=== PATIENT | male | born 1995 | race Caucasian/White ===

== ENCOUNTER 2022-06-25 01:24 | Inpatient (IN) | payer MEDICAID ==
[~2022-06-25] VITALS: Ht 170.2 cm; Wt 68.5 kg
[2022-06-25] MEDS ORDERED: ONDANSETRON HCL/PF 4 MG/2 ML VIAL ONE ×3 (03:50→11:56)
[2022-06-25] MEDS ORDERED: KETOROLAC TROMETHAMINE INJ 30 MG/ML VIAL ONE (03:50)
[2022-06-25] MEDS ORDERED: KETOROLAC TROMETHAMINE INJ 30 MG/ML VIAL IV ONE (04:00)
[2022-06-25] MEDS ORDERED: IV NS 0.9% 1,000 ML BAG IV ONE (04:00)
[2022-06-25] MEDS ORDERED: ONDANSETRON HCL/PF 4 MG/2 ML VIAL IVP ONE (04:00)
--- NOTE | 2022-06-25 04:04 | NUR ---
RAC #18G S/L BLOOD COLLECTED AND SENT TO LAB
--- NOTE | 2022-06-25 04:05 | NUR ---
PT TAKEN TO CT VIA SADA
[2022-06-25 04:17] LABS: BILIRUBIN,URINE SMALL (NEGATIVE); COLOR,URINE YELLOW (YELLOW); LEUKOCYTE ESTERASE ,URINE NEGATIVE (NEGATIVE); NITRITE, URINE NEGATIVE (NEGATIVE); PH,URINE 6.5 (5.0-8.0); PROTEIN,URINE 100 mg/dl (NEGATIVE); UGLUCOSE NEGATIVE (NEGATIVE)
[2022-06-25 04:28] LABS: BASOPHILS % (AUTO) 0.3 % (0.0-2.0); EOSINOPHILS % (AUTO) 0.5 % (0.0-6.0); HEMATOCRIT 45 % (39-51); HEMOGLOBIN 15.7 g/dL (13.5-17.5); LYMPHOCYTES # (AUTO) 1.7 K/uL (0.8-4.8); LYMPHOCYTES % (AUTO) 13.3 % (20.0-44.0); MEAN CORPUSCULAR HGB CONC 35 g/dl (31.0-36.0); MEAN CORPUSCULAR VOLUME 87 fL (80-96); MONOCYTES % (AUTO) 7.6 % (2.0-12.0); NEUTROPHILS # (AUTO) 10.2 K/uL (1.8-8.9); NEUTROPHILS % (AUTO) 78.3 % (43.0-81.0); PLATELET COUNT (AUTO) 399 K/uL (150-450); RED BLOOD CELL COUNT(AUTO) 5.18 MIL/uL (4.5-6.0)
[2022-06-25 04:29] LABS: BACTERIA,URINE Rare /HPF (None Seen); SQUAMOUS EPITHELIAL CELL,UR Few /HPF (None Seen)
[2022-06-25 04:34] LABS: BILIRUBIN,DIRECT 0.4 mg/dL (0.0-0.2); BILIRUBIN,TOTAL 1.7 mg/dL (0.2-1.0); CALCIUM, SERUM 9.4 mg/dL (8.5-10.1); CREATININE 1.1 mg/dL (0.6-1.3); TOTAL PROTEIN, SERUM 9.1 g/dL (6.4-8.2)
[2022-06-25 04:36] LABS: POTASSIUM 2.5 mmol/L (3.5-5.1)
[2022-06-25] MEDS ORDERED: POTASSIUM CL. PREMIX PERIPHER. 200 ML ONE (04:40)
[2022-06-25] MEDS ORDERED: POTASSIUM CHLORIDE 20 MEQ TAB.PRT.SR PO ONE ×2 (04:40→05:00)
[2022-06-25] MEDS ORDERED: POTASSIUM CHLORIDE 10 MEQ/50 ML PREMIXED IVPB FOR PERIPHERAL LINE IV ONE (05:00)
--- NOTE | 2022-06-25 05:11 | NUR ---
DR BLAKELY ON THE PHONE WITH DR IRIZARRY FOR CARDIAC CONSULT
[2022-06-25] MEDS ORDERED: ONDANSETRON HCL/PF 4 MG/2 ML VIAL IV ONE ×2 (05:30→12:00)
[2022-06-25] MEDS ORDERED: ONDA4TAB5 PO (05:49)
[2022-06-25] MEDS ORDERED: PANT40TA2 PO (05:49)
[2022-06-25] MEDS ORDERED: POTA10TA PO (05:49)
--- NOTE | 2022-06-25 12:25 | NUR ---
MOVE SHEET SUBMITTED.
--- NOTE | 2022-06-25 12:41 | NUR ---
[facility] CALLED [facility] B[facility] PAGED.
--- NOTE | 2022-06-25 13:17 | NUR ---
THOMAS SISTER [phone] IN [facility] [phone] KENISHA
[2022-06-25] MEDS ORDERED: ACETAMINOPHEN 325 MG TABLET PO PRN (13:30)
[2022-06-25] MEDS ORDERED: ONDANSETRON HCL/PF 4 MG/2 ML VIAL IVP PRN (13:30)
--- NOTE | 2022-06-25 13:42 | NUR ---
room [id number]
--- NOTE | 2022-06-25 14:07 | NUR ---
Report given to Malia BOWEN to continue care.
--- NOTE | 2022-06-25 14:52 | NUR ---
wheeled patient via gurney accompanied by RN and emt in no distress. RN assigned to patient at bedside to continue care.
--- NOTE | 2022-06-25 15:00 | NUR ---
[employer] OPENING NOTES: RECEIVED PT VIA GURNEY FROM ER STAFF. A/O X4, VITALS WERE BP: 102/51, HR: 68, TEMP 98.2, RR: 18, O2 SAT 99% ON RA. NO S/S OF ACUTE DISTRESS AND SOB NOTED. IV ACCESS RAC# 18. CONNECTED PT TO TELE MONITOR READING SR 90. PT C/O OF PAIN 8/10, PRN PAIN MED GIVEN, WILL REASSESS FOR EFFECTIVENESS. KEPT NPO FOR NOW. SAFETY MEASURES IN PLACE: HOB ELEVATED, LOCKED AT LOWEST POSITION, SIDERAILS UP X2, TABLE AND CALL LIGHT WITHIN REACH, WILL CONT TO MONITOR.
[2022-06-25] MEDS: HYDROCODONE/APAP 5/325MG TABLET PO PRN ×3 (15:23→23:57)
[2022-06-25] MEDS: POTASSIUM CL. PREMIX PERIPHER. 50 ML IV SCH ×4 (15:27→18:58)
[2022-06-25] MEDS: IV D5/0.45 NACL 1,000 ML IV PRN (16:54)
--- NOTE | 2022-06-25 19:35 | NUR ---
PUBLIC RELATIONS PROFESSIONAL OPENING NOTE RECEIVED PATIENT RESTING IN BED; AWAKE, ALERT AND ORIENTED X4; THAI SPEAKING. BREATHING IS EVEN AND NONLABORED. ON ROOM AIR; TOLERATING WELL. NOT IN ANY FORM OF RESPIRATORY DISTRESS. ON TELEMETRY MONITORING WITH CURRENT READING OF SINUS RHYTHM HR-66 BPM. ABLE TO MAKE NEEDS KNOWN. WITH IV ACCESS ON RIGHT AC G#18 INFUSING WITH D5 1/2 NS 1L REGULATED @ 75ML/HR; PATENT, INTACT AND FLUSHES WELL. SAFETY AND FALL MEASURES IMPLEMENTED: CALL LIGHT AND TABLE WITHIN REACH, SIDE RAILS UP X2, BED IN LOWEST LOCKED POSITION. WILL CONTINUE TO MONITOR
--- NOTE | 2022-06-25 19:45 | NUR ---
AUTO SERVICE WRITER CLOSING NOTES: PT AWAKE, A/O X4, VITALS WERE BP: 102/51, HR: 68, TEMP 98.2, RR: 18, O2 SAT 99% ON RA. NO S/S OF SOB NOTED. IV ACCESS RAC# 18 RUNNING D5 1/2 NS @ 75ML/HR. PT ON TELE MONITOR READING SR 90. PT C/O OF PAIN 07/08, PRN PAIN MED GIVEN @ 1930. KEPT NPO FOR NOW. SAFETY MEASURES IN PLACE: HOB ELEVATED, LOCKED AT LOWEST POSITION, SIDERAILS UP X2, TABLE AND CALL LIGHT WITHIN REACH, ENDORSED TO PM SHIFT.
[2022-06-25 20:00] VITALS: BP 139/78
--- NOTE | 2022-06-25 23:57 | NUR ---
RN NOTE PATIENT COMPLAINED OF LEFT FLANK AND BACK PAIN WITH SCALE OF 8/10; NORCO 5/325 1 TAB GIVEN PO ORDERED. WILL CONTINUE TO MONITOR
[2022-06-26] VITALS: BP 114/45
[2022-06-26 00:10] VITALS: BP 114/45
--- NOTE | 2022-06-26 01:53 | NUR ---
RN NOTE PATIENT STATED THAT PAIN MEDICINE GIVEN IS OF NO RELIEF AT ALL. VINCENT JOYNER NP NOTIFIED AND MADE AWARE. WITH NEW ORDER MADE AND CARRIED OUT.
[2022-06-26] MEDS ORDERED: KETOROLAC TROMETHAMINE INJ 30 MG/ML VIAL IM ONE (02:00)
--- NOTE | 2022-06-26 02:06 | NUR ---
RN NOTE KETOROLAC 30 MG 1 ML GIVEN IM ORDERED; WILL CONTINUE TO MONITOR
[2022-06-26 04:00] VITALS: BP 118/70
[2022-06-26 06:00] LABS: BASOPHILS % (AUTO) 0.3 % (0.0-2.0); EOSINOPHILS % (AUTO) 1.8 % (0.0-6.0); HEMATOCRIT 44 % (39-51); HEMOGLOBIN 15.3 g/dL (13.5-17.5); LYMPHOCYTES # (AUTO) 2.9 K/uL (0.8-4.8); LYMPHOCYTES % (AUTO) 26.9 % (20.0-44.0); MEAN CORPUSCULAR HGB CONC 35 g/dl (31.0-36.0); MEAN CORPUSCULAR VOLUME 87 fL (80-96); MONOCYTES # (AUTO) 1.5 K/uL (0.1-1.30); MONOCYTES % (AUTO) 13.6 % (2.0-12.0); NEUTROPHILS # (AUTO) 6.3 K/uL (1.8-8.9); NEUTROPHILS % (AUTO) 57.4 % (43.0-81.0); PLATELET COUNT (AUTO) 372 K/uL (150-450); RED BLOOD CELL COUNT(AUTO) 5.07 MIL/uL (4.5-6.0); WHITE BLOOD COUNT (AUTO) 10.9 K/uL (4.3-11.0)
[2022-06-26 06:12] LABS: CALCIUM, SERUM 8.9 mg/dL (8.5-10.1); CREATININE 1.2 mg/dL (0.6-1.3); MAGNESIUM 2.5 mg/dL (1.8-2.4); PHOSPHORUS 4.4 mg/dL (2.5-4.9)
[2022-06-26 06:17] LABS: POTASSIUM 2.5 mmol/L (3.5-5.1)
--- NOTE | 2022-06-26 06:17 | NUR ---
RN NOTE RECEIVED CRITICAL LAB RESULT; POTASSIUM-2.5. STRATEGY EXECUTION CONSULTANT HOSPITALIST NOTIFIED.
--- NOTE | 2022-06-26 07:04 | NUR ---
CASEWORKER INTAKE CLOSING NOTE PATIENT IS RESTING IN BED; A/O X4. TOLERATED ALL TREATMENTS. NEEDS ANTICIPATED AND ATTENDED. SAFETY MEASURES IN PLACE. BED IN LOWEST LOCKED POSITION. ENDORSED TO MORNING SHIFT FOR ILDEFONSO.
--- NOTE | 2022-06-26 07:30 | NUR ---
RN OPENING NOTE- PATIENT RESTING IN BED; AWAKE, ALERT AND ORIENTED X4; [place] SPEAKING. BREATHING NONLABORED. ON ROOM AIR; ON TELEMETRY MONITORING WITH CURRENT READING OF SINUS SHINE HR- 56. ABLE TO MAKE NEEDS KNOWN. WITH IV ACCESS ON RIGHT AC G#18 INFUSING WITH D5 1/2 NS 1L AT 75ML/HR. SAFETY AND FALL MEASURES IMPLEMENTED: CALL LIGHT AND TABLE WITHIN REACH, SIDE RAILS UP X2, BED IN LOWEST LOCKED POSITION. WILL CONTINUE TO MONITOR / ASSIST
[2022-06-26 08:00] VITALS: BP 118/83
[2022-06-26] MEDS: POTASSIUM CL. PREMIX PERIPHER. 50 ML IV SCH ×2 (08:02→09:06)
[2022-06-26] MEDS: HYDROCODONE/APAP 5/325MG TABLET PO PRN ×3 (08:11→16:39)
[2022-06-26] MEDS: PANTOPRAZOLE 40 MG VIAL IV SCH (09:33)
--- NOTE | 2022-06-26 09:36 | NUR ---
RN NOTE- IV K INFUSED ONE BAG 10MEQ BUT PT C/O BURNING AT IV. DR FONTANEZ ORDERED KCL 80MEQ PO X ONE DOSE, COMPLIED
[2022-06-26] MEDS ORDERED: POTASSIUM CHLORIDE 20 MEQ TAB.PRT.SR PO ONE (10:00)
[2022-06-26] MEDS: IV D5/0.45 NACL 1,000 ML IV PRN (14:59)
[2022-06-26 16:00] VITALS: BP 103/58
--- NOTE | 2022-06-26 19:01 | NUR ---
RN NOTE- PT IV LEAKING, PT PULLING AT IT AND CONTINUED ATTEMPTS AT STOPPING IVF. REMOVED IV . INFORMED DR FONTANEZ.
--- NOTE | 2022-06-26 19:02 | NUR ---
RN CLOSING NOTE- PT AOX4, BELARUSIAN SPEAKING , TOLERATING CLEAR FLUIDS WELL, PAIN RELIEVED W NORCO TABS Q4H. PT ANXIOUS AT TIMES. NO N&V THIS SHIFT. BED LOCKED, NEEDS ATTENDED. MONBITOR ASSIST
[2022-06-26 20:00] VITALS: BP 85/55
--- NOTE | 2022-06-26 20:04 | NUR ---
RN OPENING NOTE- PT AOX4, KOREAN SPEAKING , TOLERATING CLEAR FLUIDS WELL, NO N&V REPORTED. NO PAIN REPORTED AT THIS TIME. BED LOCKED, NEEDS ATTENDED. WILL ATTEMPT TO INSERT IV IF PT AGREES. WILL CONTINUE TO MONITOR.
[2022-06-26] MEDS: Potassium Chloride 20 MEQ in IV NS 0.9% 1,000 ML IV SCH (22:54)
--- NOTE | 2022-06-26 22:55 | NUR ---
[employer] DRIVER NOTES new iv access extablished in r wrist 20g tolerated well. ns +kcl started. all needs met pt did request a sleeping aid head of operation and logistics notified awaiting for any new orders.
[2022-06-26] MEDS ORDERED: ZOLPIDEM TARTRATE 10 MG TABLET PO PRN (23:00)
--- NOTE | 2022-06-26 23:20 | NUR ---
telegraphic typewriter installer notes prtodd johnson given tolerated well will continue to monitor.
[2022-06-27] VITALS: BP 100/59
[2022-06-27] MEDS: HYDROCODONE/APAP 5/325MG TABLET PO PRN ×2 (05:47→12:12)
--- NOTE | 2022-06-27 05:58 | NUR ---
television specialist notes prn norco given for pain tolerated well. will continue to monitor.
[2022-06-27 06:41] LABS: BASOPHILS % (AUTO) 0.6 % (0.0-2.0); EOSINOPHILS % (AUTO) 2.6 % (0.0-6.0); HEMATOCRIT 43 % (39-51); HEMOGLOBIN 14.5 g/dL (13.5-17.5); LYMPHOCYTES # (AUTO) 1.8 K/uL (0.8-4.8); LYMPHOCYTES % (AUTO) 24.5 % (20.0-44.0); MEAN CORPUSCULAR HGB CONC 34 g/dl (31.0-36.0); MEAN CORPUSCULAR VOLUME 88 fL (80-96); MONOCYTES # (AUTO) 0.8 K/uL (0.1-1.30); MONOCYTES % (AUTO) 10.4 % (2.0-12.0); NEUTROPHILS # (AUTO) 4.6 K/uL (1.8-8.9); NEUTROPHILS % (AUTO) 61.9 % (43.0-81.0); PLATELET COUNT (AUTO) 329 K/uL (150-450); RED BLOOD CELL COUNT(AUTO) 4.89 MIL/uL (4.5-6.0); WHITE BLOOD COUNT (AUTO) 7.4 K/uL (4.3-11.0)
[2022-06-27 06:50] LABS: ALBUMIN 3.9 g/dL (3.4-5.0); BILIRUBIN,TOTAL 1.4 mg/dL (0.2-1.0); CALCIUM, SERUM 8.4 mg/dL (8.5-10.1); CREATININE 0.8 mg/dL (0.6-1.3); MAGNESIUM 2.5 mg/dL (1.8-2.4); PHOSPHORUS 3.2 mg/dL (2.5-4.9); POTASSIUM 3.1 mmol/L (3.5-5.1); TOTAL PROTEIN, SERUM 7.7 g/dL (6.4-8.2)
--- NOTE | 2022-06-27 07:30 | NUR ---
RN Opening notes. Patient AOx4, states back pain, VSS, NSR. Patient able to express his concerns, BRP able to ambulate with some assistance. Call light and table within reach, bed at lowest position, all safety precautions taken.
[2022-06-27 08:00] VITALS: BP 116/77
[2022-06-27] MEDS: PANTOPRAZOLE 40 MG VIAL IV SCH (08:29)
[2022-06-27] MEDS: Potassium Chloride 20 MEQ in IV NS 0.9% 1,000 ML IV SCH (08:37)
[2022-06-27] MEDS: POTASSIUM CHLORIDE 20 MEQ POWDER PACKET PO SCH ×2 (12:11→14:17)
[2022-06-27] MEDS ORDERED: POTA20TA83 PO (13:12)
[2022-06-27] MEDS ORDERED: ONDA4TAB5 PO (13:12)
[2022-06-27] MEDS ORDERED: HYDR-3972 PO (13:12)
[2022-06-27] MEDS ORDERED: PANT40TA2 PO (13:12)
[2022-06-27] MEDS ORDERED: POTASSIUM CHLORIDE 20 MEQ POWDER PACKET PO SCH (14:00)
--- NOTE | 2022-06-27 14:45 | NUR ---
help desk team leader Notes PT AO x 4, able to express concerns. Pts state pain is under control, informed that medications will be at his [facility] of choice, advised to follow up with his physician or visit his local community clinic. Advised to go to nearest [facility] in case of an emergency. Reviewed list of belongings and everything on list is with pt. VVS, NSR, pt shows no signs of distress, provided education based on admission reasons as recommended by his physician. Patients friend came to pick him up, no incidents.
== END 2022-06-27 14:45 | disposition home or self-care (01) | DRG 243 ==
LOC: ER 01:38 → EDSEX 01:38 → TELE 14:07
PROVIDERS: ATTEND Nurse Practitioner Acute Care
DX: K21.00 Gastro-esophageal reflux disease with esophagitis, without bleeding (principal); E87.1 Hypo-osmolality and hyponatremia; R17 Unspecified jaundice; E87.6 Hypokalemia; E80.6 Other disorders of bilirubin metabolism; R11.2 Nausea with vomiting, unspecified; Z72.89 Other problems related to lifestyle; F17.200 Nicotine dependence, unspecified, uncomplicated; N20.0 Calculus of kidney; F12.90 Cannabis use, unspecified, uncomplicated; D72.829 Elevated white blood cell count, unspecified; K22.9 Disease of esophagus, unspecified; Z20.822 Contact with and (suspected) exposure to COVID-19
CPT/HCPCS: 36415; 76700-TC; 80048-TC; 80053-TC; 80076-TC; 81001; 83690-TC; 83735-TC; 84100-TC; 84132-TC; 84484-TC; 85025-TC; 85730-TC; 87081-TC; C9113; C9803; G0378; J1885; J2405; J3480; J3490; J7030; J7040; J7042